=== PATIENT | female | born 1985 | race Two or more races ===

== ENCOUNTER → 2021-03-10 | Outpatient (CLI) | payer OTHER ==
[~2021-03-10] MED LIST: IOHEXOL 240 MG/ML 50ML VIAL. PO ONE; IOHEXOL 300 MG/ML 100ML VIAL. IV ONE
--- NOTE | 2021-03-10 10:26 | RAD ---
CT abdomen pelvis with contrast dated 03/09/2021. No comparison available. CLINICAL INDICATION: Right-sided abdominal pain. TECHNIQUE: Contiguous axial imaging the abdomen pelvis performed after the administration of 75 cc Omnipaque 300 . One or more of the following individualized dose reduction techniques were utilized for this examinat ion: 1. Automated exposure control 2. Adjustment of the mA and/or kV according to patient size 3. Use of iterative reconstruction technique FINDINGS: Limited images of the lung bases are clear. No pleural fusion. Mild groundglass density in the lower lobes, likely atelectasis. There is a low-density focus in the right lobe liver on image 8 that measures about 1.7 cm, indetermi flores. The liver is otherwise homogeneous. No biliary ductal dilatation. Gallbladder surgically absent . Spleen is upper limits of normal in size. Pancreas, adrenal glands and kidneys are unremarkable. No h ydronephrosis. Partially opacified GI tract normal in caliber and contour. No bowel wall thickening. No inflammatory stranding in the mesentery. The appendix is not identified and likely surgically absent. No ascites or lymphadenopathy. Abdominal aorta normal in caliber. Images of pelvis show mildly distended urinary bladder. Nodular foci within the uterine myometrium me asure up to 3.3 cm, likely fibroid. Ovaries unremarkable. There is a trace amount of free pelvic flui d. No pelvic adenopathy. Bone windows show no acute findings. Mild multilevel spondylosis. Small umbilical hernia containing w hat fat. IMPRESSION: 1. No acute abnormality of abdomen or pelvis. 2. Indeterminate low-density focus in the right lobe liver measuring up to 1.7 cm. Follow-up liver MR I or biphasic CT to better evaluate. 3. Fibroid uterus. 4. Status post cholecystectomy and appendectomy. Electronically signed by: Everett Donaldson MD (03/10/2021 10:23 AM) [id number]
== END ==
LOC: CT 07:33
PROVIDERS: ATTEND Nurse Practitioner Primary Care
DX: D25.9 Leiomyoma of uterus, unspecified (principal); N32.89 Other specified disorders of bladder; K42.9 Umbilical hernia without obstruction or gangrene
CPT/HCPCS: 74177; Q9966; Q9967

== ENCOUNTER → 2021-07-22 | Outpatient (CLI) | payer OTHER ==
[~2021-07-22] MED LIST changes: +GADOTERATE 7.5 MMOL/15ML VIAL. IVP ONE; -IOHEXOL 240 MG/ML 50ML VIAL. PO ONE; -IOHEXOL 300 MG/ML 100ML VIAL. IV ONE
--- NOTE | 2021-07-22 16:45 | RAD ---
EXAMINATION: MRI abdomen with and without IV contrast. INDICATION:35 years, Female, abnormal findings on right hepatic lobe seen on CT exam. Further evaluat ion.. TECHNIQUE: Multiplanar multisequence MRI of the abdomen was performed. COMPARISON: CT dated 03/10/2021. FINDINGS: LOWER CHEST: Unremarkable ABDOMEN: Normal size and morphology of the liver with homogeneous enhancement. No steatosis or iron deposition . There are two T2 hyperintense lesions in the right hepatic lobe demonstrates peripheral discontinuo us nodular enhancement with progressive fill-in, the largest lesion in hepatic segment 8 measures 1.7 cm (series 3 image 10). The smaller lesion in hepatic segment 6 measures 0.6 cm. No suspicious focal hepatic lesion. Cholecystectomy. No biliary ductal dilation. Normal spleen. Mildly atrophic pancreatic parenchyma. No main pancreatic ductal dilation. No adrenal nodule. Normal symmetric enhancement of the kidneys with no hydronephrosis. A few sub-5 mm bilateral renal cortical simple cysts. No bowel dilation. Normal a ppendix. No lymphadenopathy in the abdomen by size criteria. Normal caliber abdominal aorta. Mesenter ic arteries and portal vein are patent. Retroaortic left renal vein. No ascites. MUSCULOSKELETAL: No suspicious osseous lesion. IMPRESSION: Two right hepatic lobe hemangiomas, the largest 1.7 cm in hepatic segment 8 corresponds to hypoattenu ating lesion seen on CT exam. No follow-up is required. Electronically signed by: Adam Mendiola MD (07/22/2021 4:43 PM) [id number]
== END ==
LOC: MRI 12:42
PROVIDERS: ATTEND Nurse Practitioner Primary Care
DX: R93.2 Abnormal findings on diagnostic imaging of liver and biliary tract (principal); K86.89 Other specified diseases of pancreas; N28.1 Cyst of kidney, acquired; Z90.49 Acquired absence of other specified parts of digestive tract; D18.09 Hemangioma of other sites
CPT/HCPCS: 74183; A9575